=== PATIENT | female | born 1995 | race Caucasian/White ===

== ENCOUNTER 2019-09-05 12:44 | Emergency (ER) | payer BC, OTHER ==
[2019-09-05 14:21] LABS: BLOOD UREA NITROGEN,BUN 7 mg/dL (7.0-18.0); CARBON DIOXIDE,CO2 28.7 mmol/L (21.0-32.0); CHLORIDE,CL 105 mmol/L (98-107); GLUCOSE RANDOM 86 mg/dL (74-106); SODIUM,NA 143 mmol/L (136-145)
--- NOTE | 2019-09-05 14:35 | CR ---
INDICATION: Chest pain, shortness of breath, weak, dizzy, syncope for 6 mon TECHNIQUE: Chest radiograph 2 views COMPARISON: None FINDINGS: Mediastinum: The mediastinum is normal in appearance. The heart silhouette is normal in size and morphology. Lung: Both lungs are unremarkable in appearance. No sign of pleural effusion seen. No pneumothorax is identified. Bone and Soft tissue: Unremarkable for age. IMPRESSION: 1. No acute cardiopulmonary disease is seen. Dictated by: Dani Garcia MD @ 09/05/2019 14:35:02 (Electronically Signed)
--- NOTE | 2019-09-05 14:37 | CT ---
INDICATION: Pain. Headache. Dizzy. Blurred vision. TECHNIQUE: CT head without IV contrast. FINDINGS: No intracranial hemorrhage, edema, or mass effect. No significant intracranial pathology. Benign calcified nodule in the left frontal scalp anteriorly and superiorly. Remainder negative. Impression : No acute or significant intracranial pathology. Please note that all CT scans at this facility use dose modulation, iterative reconstruction, and/or weight-based dosing when appropriate to reduce radiation dose to as low as reasonably achievable. Dictated by Chris Lanza MD @ Sep 05 2019 2:35PM Signed by Dr. Chris Lanza @ Sep 05 2019 2:36PM
--- NOTE | 2019-09-05 14:39 | EDM.PDOC ---
ED HPI GENERAL MEDICAL PROBLEM - General Chief Complaint: Respiratory Problem Stated Complaint: DIZZINESS Time Seen by Provider: 09/05/19 13:31 Source of Information: Reports: Patient History Limitations: Reports: No Limitations - History of Present Illness INITIAL COMMENTS - FREE TEXT/NARRATIVE: HISTORY AND PHYSICAL: History of present illness: Patient is a 24-year-old female who presents to the ED today with concern of dizziness episodes. Patient states she has been having issues of dizziness episodes over the past month and has had episodes of feeling like she is going to lose consciousness. Patient states that she has had these episodes multiple times over the course of the past month but has not seen or been evaluated for them. Patient states that she took a pre-workout today this morning and went to the gym. Patient states that while walking at the gym her heart rate was in the 130s (she checked on her apple watch) and states this felt unusual for her. Patient states she began to feel dizzy and lightheaded so went home and at home felt like she was going to "pass out ". Patient states she did not pass out and this episode had subsided. Patient states currently she feels "off." Patient denies any health history for herself or any family history of heart concerns. Patient states she is currently on her menstrual cycle. Patient denies fever, chills, chest pain, shortness of breath, or cough. Denies headache, neck stiff ness, change in vision, syncope. Denies nausea, vomiting, abdominal pain, diarrhea, constipation, or dysuria. Has not noted any blood in urine or stool. Patient has been eating and drinking appropriately. Review of systems: As per history of present illness and below otherwise all systems reviewed and negative. Past medical history: As per history of present illness and as reviewed below otherwise noncontributory. Surgical history: As per history of present illness and as reviewed below otherwise noncontributory. Social history: See social history for further information Family history: As per history of present illness and as reviewed below otherwise noncontributory. Physical exam: General: Patient is alert, oriented, and in no acute distress. Patient sitting comfortably on exam table. HEENT: Atraumatic, normocephalic, pupils equal and reactive bilaterally, negative for conjunctival pallor or scleral icterus, mucous membranes moist, TMs normal bilaterally, throat clear, neck supple, nontender, trachea midline. No drooling or trismus noted. No meningeal signs. No hot potato voice noted. Lungs: Clear to auscultation, breath sounds equal bilaterally, chest nontender. Heart: S1S2, regular rate and rhythm without overt murmur Abdomen: Soft, nondistended, nontender. Negative for masses or hepatosplenomegaly. Negative for costovertebral tenderness. Pelvis: Stable nontender. Genitourinary: Deferred. Rectal: Deferred. Skin: Intact, warm, dry. No lesions or rashes noted. Extremities: Atraumatic, negative for cords or calf pain. Neurovascular unremarkable. Neuro: Awake, alert, oriented. Cranial nerves II through XII unremarkable. Cerebellum unremarkable. Motor and sensory unremarkable throughout. Exam nonfocal. Notes: HEART 0 score low risk. Discussed importance for follow-up with a primary care provider; patient placed on expedited follow up list. Voices understanding and is agreeable to plan of care. Denies any further questions or concerns at this time. Diagnostics: EKG, CBC, CMP, UA, urine hCG, chest x-ray, troponin, head CT, orthostatic vitals Therapeutics: None Prescription: None Impression: H/O dizziness H/O palpitations Plan: 1. Follow-up with a primary care provider as discussed. Return to the ED as needed and as discussed. 2. Stop taking pre-workout supplements and limit caffeine as discussed. Definitive disposition and diagnosis as appropriate pending reevaluation and review of above. - Related Data Allergies Allergy/AdvReac Type Severity Reaction Status Date / Time No Known Allergies Allergy Verified 09/05/19 12:51 Home Meds: Home Meds . [No Known Home Meds] 09/05/19 [History] Past Medical History - Past Health History Medical/Surgical History: Denies Medical/Surgical History - Infectious Disease History Infectious Disease History: Reports: None Social & Family History - Family History Family Medical History: Noncontributory - Tobacco Use Smoking Status *Q: Current Every Day Smoker Years of Tobacco use: 5 Packs/Tins Daily: 0.1 - Caffeine Use Caffeine Use: Reports: None - Recreational Drug Use Recreational Drug Use: No ED ROS GENERAL - Review of Systems Review Of Systems: Comprehensive ROS is negative, except as noted in HPI. ED EXAM, GENERAL - Physical Exam Exam: See Below (see dictation) Course - Vital Signs Last Recorded V/S: Last Vital Signs Temp 97 F 09/05/19 12:52 Pulse 92 09/05/19 12:52 Resp 16 09/05/19 12:52 BP 119/89 09/05/19 12:52 Pulse Ox 97 09/05/19 12:52 - Orders/Labs/Meds Orders: Active Orders 24 hr Category Date Time Status Communication Order [RC] STAT Care 09/05/19 15:11 Active EKG Documentation Completion [RC] STAT Care 09/05/19 13:33 Active Orthostatic Vital Signs [RC] ASDIRECTED Care 09/05/19 13:59 Active Labs: Laboratory Tests 09/05/19 09/05/19 09/05/19 Range/Units 13:43 13:43 13:49 WBC 9.74 (4.0-11.0) K/uL RBC 4.80 (4.30-5.90) M/uL Hgb 13.9 (12.0-16.0) g/dL Hct 40.3 (36.0-46.0) % MCV 84.0 (80.0-98.0) fL MCH 29.0 (27.0-32.0) pg MCHC 34.5 (31.0-37.0) g/dL RDW Std Deviation 38.8 (28.0-62.0) fl RDW Coeff of Heidi 13 (11.0-15.0) % Plt Count 269 (150-400) K/uL MPV 11.00 (7.40-12.00) fL Neut % (Auto) 69.7 (48.0-80.0) % Lymph % (Auto) 20.7 (16.0-40.0) % Saline % (Auto) 8.7 (0.0-15.0) % Eos % (Auto) 0.6 (0.0-7.0) % Baso % (Auto) 0.3 (0.0-1.5) % Neut # (Auto) 6.8 H (1.4-5.7) K/uL Lymph # (Auto) 2.0 (0.6-2.4) K/uL Saline # (Auto) 0.9 H (0.0-0.8) K/uL Eos # (Auto) 0.1 (0.0-0.7) K/uL Baso # (Auto) 0.0 (0.0-0.1) K/uL Nucleated RBC % 0.0 /100WBC Nucleated RBCs # 0 K/uL Sodium (136-145) mmol/L Potassium (3.5-5.1) mmol/L Chloride (98-107) mmol/L Carbon Dioxide (21.0-32.0) mmol/L BUN (7.0-18.0) mg/dL Creatinine (0.6-1.0) mg/dL Est Cr Clr Drug Dosing mL/min Estimated GFR (MDRD) ml/min Glucose (74-106) mg/dL Calcium (8.5-10.1) mg/dL Total Bilirubin (0.2-1.0) mg/dL AST (15-37) IU/L ALT (14-63) IU/L Alkaline Phosphatase (46-116) U/L Troponin I (0.000-0.056) ng/mL Total Protein (6.4-8.2) g/dL Albumin (3.4-5.0) g/dL Globulin (2.6-4.0) g/dL Albumin/Globulin Ratio (0.9-1.6) Urine Color YELLOW Urine Appearance CLEAR Urine pH 8.0 (5.0-8.0) Ur Specific [place] 1.020 (1.001-1.035) Urine Protein NEGATIVE (NEGATIVE) mg/dL Urine Glucose (UA) NEGATIVE (NEGATIVE) mg/dL Urine Ketones NEGATIVE (NEGATIVE) mg/dL Urine Occult Blood NEGATIVE (NEGATIVE) Urine Nitrite NEGATIVE (NEGATIVE) Urine Bilirubin NEGATIVE (NEGATIVE) Urine Urobilinogen 0.2 (<2.0) EU/dL Ur Leukocyte Esterase NEGATIVE (NEGATIVE) Urine HCG, Qual NEGATIVE (NEGATIVE) 09/05/19 Range/Units 13:49 WBC (4.0-11.0) K/uL RBC (4.30-5.90) M/uL Hgb (12.0-16.0) g/dL Hct (36.0-46.0) % MCV (80.0-98.0) fL MCH (27.0-32.0) pg MCHC (31.0-37.0) g/dL RDW Std Deviation (28.0-62.0) fl RDW Coeff of Heidi (11.0-15.0) % Plt Count (150-400) K/uL MPV (7.40-12.00) fL Neut % (Auto) (48.0-80.0) % Lymph % (Auto) (16.0-40.0) % Saline % (Auto) (0.0-15.0) % Eos % (Auto) (0.0-7.0) % Baso % (Auto) (0.0-1.5) % Neut # (Auto) (1.4-5.7) K/uL Lymph # (Auto) (0.6-2.4) K/uL Saline # (Auto) (0.0-0.8) K/uL Eos # (Auto) (0.0-0.7) K/uL Baso # (Auto) (0.0-0.1) K/uL Nucleated RBC % /100WBC Nucleated RBCs # K/uL Sodium 143 (136-145) mmol/L Potassium 4.0 (3.5-5.1) mmol/L Chloride 105 (98-107) mmol/L Carbon Dioxide 28.7 (21.0-32.0) mmol/L BUN 7 (7.0-18.0) mg/dL Creatinine 0.7 (0.6-1.0) mg/dL Est Cr Clr Drug Dosing 121.55 mL/min Estimated GFR (MDRD) > 60.0 ml/min Glucose 86 (74-106) mg/dL Calcium 9.1 (8.5-10.1) mg/dL Total Bilirubin 0.6 (0.2-1.0) mg/dL AST 15 (15-37) IU/L ALT 23 (14-63) IU/L Alkaline Phosphatase 59 (46-116) U/L Troponin I < 0.050 (0.000-0.056) ng/mL Total Protein 7.5 (6.4-8.2) g/dL Albumin 4.1 (3.4-5.0) g/dL Globulin 3.4 (2.6-4.0) g/dL Albumin/Globulin Ratio 1.2 (0.9-1.6) Urine Color Urine Appearance Urine pH (5.0-8.0) Ur Specific [place] (1.001-1.035) Urine Protein (NEGATIVE) mg/dL Urine Glucose (UA) (NEGATIVE) mg/dL Urine Ketones (NEGATIVE) mg/dL Urine Occult Blood (NEGATIVE) Urine Nitrite (NEGATIVE) Urine Bilirubin (NEGATIVE) Urine Urobilinogen (<2.0) EU/dL Ur Leukocyte Esterase (NEGATIVE) Urine HCG, Qual (NEGATIVE) Departure - Departure Time of Disposition: 15:08 Disposition: Home, Self-Care 01 Clinical Impression: History of dizziness, History of palpitations - Discharge Information Referrals: PCP,None [Primary Care Provider] - Forms: ED Department Discharge Additional Instructions: The following information is given to patients seen in the emergency department who are being discharged to home. This information is to outline your options for follow-up care. We provide all patients seen in our emergency department with a follow-up referral. The need for follow-up, as well as the timing and circumstances, are variable depending upon the specifics of your emergency department visit. If you don't have a primary care physician on staff, we will provide you with a referral. We always advise you to contact your personal physician following an emergency department visit to inform them of the circumstance of the visit and for follow-up with them and/or the need for any referrals to a consulting specialist. The emergency department will also refer you to a specialist when appropriate. This referral assures that you have the opportunity for follow-up care with a specialist. All of these measure are taken in an effort to provide you with optimal care, which includes your follow-up. Under all circumstances we always encourage you to contact your private physician who remains a resource for coordinating your care. When calling for follow-up care, please make the office aware that this follow-up is from your recent emergency room visit. If for any reason you are refused follow-up, please contact the [facility] Emergency Department at and asked to speak to the emergency department charge nurse. [facility] [address] [place] [id number] [facility] [address] [place] [id number] 1. Follow-up with a primary care provider as discussed. Return to the ED as needed and as discussed. 2. Stop taking pre-workout supplements and limit caffeine as discussed. Sepsis Event Note - Evaluation Sepsis Screening Result: No Definite Risk - Focused Exam Vital Signs: Vital Signs Temp Pulse Resp BP Pulse Ox 09/05/19 12:52 97 F 92 16 119/89 97 Date Exam was Performed: 09/05/19 Time Exam was Performed: 15:23 - My Orders Last 24 Hours: My Active Orders 09/05/19 13:33 EKG Documentation Completion [RC] STAT 09/05/19 13:59 Orthostatic Vital Signs [RC] ASDIRECTED 09/05/19 15:11 Communication Order [RC] STAT - Assessment/Plan Last 24 Hours: My Active Orders 09/05/19 13:33 EKG Documentation Completion [RC] STAT 09/05/19 13:59 Orthostatic Vital Signs [RC] ASDIRECTED 09/05/19 15:11 Communication Order [RC] STAT
== END 2019-09-05 15:38 | disposition home or self-care (01) ==
LOC: MW.ED 12:44
DX: R42 Dizziness and giddiness (principal); R00.2 Palpitations; F17.210 Nicotine dependence, cigarettes, uncomplicated
CPT/HCPCS: 36415; 70450; 70450-26; 71046; 71046-26; 80053; 81003; 81025; 84484; 85025; 87804; 93005; 99283; 99284-25

== ENCOUNTER 2019-10-11 19:48 | Emergency (ER) | payer SELFPAY ==
--- NOTE | 2019-10-11 20:49 | EDM.PDOC ---
ED HPI GENERAL MEDICAL PROBLEM - General Chief Complaint: Respiratory Problem Stated Complaint: COUGH Time Seen by Provider: 10/11/19 20:08 Source of Information: Reports: Patient History Limitations: Reports: No Limitations - History of Present Illness INITIAL COMMENTS - FREE TEXT/NARRATIVE: HISTORY AND PHYSICAL: History of present illness: Patient is a 24-year-old female who presents to the ED today with concern of desire for coronavirus testing. Patient states the only reason she is here is because her work is requesting that she be tested for the coronavirus. Patient states she has had low-grade fever off and on for the past 2 days and started having a cough. Patient denies feeling short of breath and states that she has not had a fever for most of today. Patient states she is only here because work is requesting it and had sent her home. Patient denies any other symptoms or concerns. Patient denies fever, chills, chest pain, shortness of breath, or cough. Denies headache, neck stiff ness, change in vision, syncope, or near syncope. Denies nausea, vomiting, abdominal pain, diarrhea, constipation, or dysuria. Has not noted any blood in urine or stool. Patient has been eating and drinking appropriately. Review of systems: As per history of present illness and below otherwise all systems reviewed and negative. Past medical history: As per history of present illness and as reviewed below otherwise noncontributory. Surgical history: As per history of present illness and as reviewed below otherwise noncontributory. Social history: See social history for further information Family history: As per history of present illness and as reviewed below otherwise noncontributory. Physical exam: General: Patient is alert, oriented, and in no acute distress. Patient sitting comfortably on exam table. HEENT: Atraumatic, normocephalic, pupils equal and reactive bilaterally, negative for conjunctival pallor or scleral icterus, mucous membranes moist, TMs normal bilaterally, throat clear, neck supple, nontender, trachea midline. No drooling or trismus noted. No meningeal signs. No hot potato voice noted. Lungs: Patient speaking clearly without breathlessness, no wheezing or stridor, no accessory muscle use or respiratory distress. Auscultation deferred due to current COV-ID 19 outbreak. Heart: Auscultation deferred due to current COV-ID 19 out break Abdomen: Soft, nondistended, nontender. Negative for masses or hepatosplenomegaly. Negative for costovertebral tenderness. Pelvis: Stable nontender. Genitourinary: Deferred. Rectal: Deferred. Skin: Intact, warm, dry. No lesions or rashes noted. Extremities: Atraumatic, negative for cords or calf pain. Neurovascular unremarkable. Neuro: Awake, alert, oriented. Cranial nerves II through XII unremarkable. Cerebellum unremarkable. Motor and sensory unremarkable throughout. Exam nonfocal. Notes: Due to the [facility] restrictions, patient does not meet the testing requirements for the COV-ID 19. However, did discuss with patient the [facility] recommendations for staying at home and when if needed to return to the ED. Discussed importance of follow-up with a primary care provider. Voices understanding and is agreeable to plan of care. Denies any further questions or concerns at this time. Diagnostics: None Therapeutics: None Prescription: None Impression: Viral syndrome Plan: 1. Stay in isolation for at least 3 days, 72 hours have passed, since recovery or resolution of fever without the use of fever reducing medication such as Tylenol and ibuprofen. 2. You can alternate ibuprofen and Tylenol as directed for pain and discomfort. 3. Follow-up with a primary care provider as discussed. Return to the ED as needed and as discussed. Definitive disposition and diagnosis as appropriate pending reevaluation and review of above. - Related Data Allergies Allergy/AdvReac Type Severity Reaction Status Date / Time No Known Allergies Allergy Verified 10/11/19 20:13 Home Meds: Home Meds . [No Known Home Meds] 09/05/19 [History] Past Medical History - Past Health History Medical/Surgical History: Denies Medical/Surgical History - Infectious Disease History Infectious Disease History: Reports: None - Past Surgical History HEENT Surgical History: Reports: Adenoidectomy, Myringotomy w Tube(s) Social & Family History - Family History Family Medical History: Noncontributory - Tobacco Use Smoking Status *Q: Current Every Day Smoker Years of Tobacco use: 8 Packs/Tins Daily: 0.5 - Caffeine Use Caffeine Use: Reports: Energy Drinks - Recreational Drug Use Recreational Drug Use: No ED ROS GENERAL - Review of Systems Review Of Systems: Comprehensive ROS is negative, except as noted in HPI. ED EXAM, GENERAL - Physical Exam Exam: See Below (see dictation) Course - Vital Signs Last Recorded V/S: Last Vital Signs Temp 97.7 F 10/11/19 20:11 Pulse 75 10/11/19 20:11 Resp 17 10/11/19 20:11 BP 116/74 10/11/19 20:11 Pulse Ox 99 10/11/19 20:11 Departure - Departure Time of Disposition: 20:48 Disposition: Home, Self-Care 01 Clinical Impression: Viral syndrome - Discharge Information Referrals: PCP,None [Primary Care Provider] - Forms: ED Department Discharge Additional Instructions: The following information is given to patients seen in the emergency department who are being discharged to home. This information is to outline your options for follow-up care. We provide all patients seen in our emergency department with a follow-up referral. The need for follow-up, as well as the timing and circumstances, are variable depending upon the specifics of your emergency department visit. If you don't have a primary care physician on staff, we will provide you with a referral. We always advise you to contact your personal physician following an emergency department visit to inform them of the circumstance of the visit and for follow-up with them and/or the need for any referrals to a consulting specialist. The emergency department will also refer you to a specialist when appropriate. This referral assures that you have the opportunity for follow-up care with a specialist. All of these measure are taken in an effort to provide you with optimal care, which includes your follow-up. Under all circumstances we always encourage you to contact your private physician who remains a resource for coordinating your care. When calling for follow-up care, please make the office aware that this follow-up is from your recent emergency room visit. If for any reason you are refused follow-up, please contact the [facility] Emergency Department at and asked to speak to the emergency department charge nurse. [facility] [address] [place] [address] [id number] [id number] 1. Stay in isolation for at least 3 days, 72 hours have passed, since recovery or resolution of fever without the use of fever reducing medication such as Tylenol and ibuprofen. 2. You can alternate ibuprofen and Tylenol as directed for pain and discomfort. 3. Follow-up with a primary care provider as discussed. Return to the ED as needed and as discussed. Sepsis Event Note - Evaluation Sepsis Screening Result: No Definite Risk - Focused Exam Vital Signs: Vital Signs Temp Pulse Resp BP Pulse Ox 10/11/19 20:11 97.7 F 75 17 116/74 99 Date Exam was Performed: 10/11/19 Time Exam was Performed: 20:54
== END 2019-10-11 21:05 | disposition home or self-care (01) ==
LOC: MW.ED 19:48
DX: B34.9 Viral infection, unspecified (principal); F17.210 Nicotine dependence, cigarettes, uncomplicated
CPT/HCPCS: 99283

== ENCOUNTER 2020-04-19 13:46 | Emergency (ER) | payer BC ==
[2020-04-19] MEDS ORDERED: Dexamethasone 10 MG/ML SDV IVPUSH STA (14:26)
[2020-04-19] MEDS ORDERED: Ibuprofen Susp 100 MG/5 ML 10 ML UD Cup PO STA (14:27)
--- NOTE | 2020-04-19 14:46 | EDM.PDOC ---
ED HPI GENERAL MEDICAL PROBLEM - General Chief Complaint: ENT Problem Stated Complaint: THROAT PAIN Time Seen by Provider: 04/19/20 13:51 Source of Information: Reports: Patient History Limitations: Reports: No Limitations - History of Present Illness INITIAL COMMENTS - FREE TEXT/NARRATIVE: History of present illness: Is a 25-year-old woman without any significant past medical history who presents to the emergency department for a chief complaint of sore throat. The patient states that her sore throat began approximately 24 to 48 hours prior upon awakening. She states that she is having pain with swallowing but denies any drooling, trismus, or change in voice. She states that she has felt chills but denies any fevers. She rates her pain as 8 out of 10. She denies any radiation of the pain. She states that she has tried NyQuil and Tylenol without any relief. She denies any sick contacts. Her last dose of NyQuil was at 7 AM. She states that she has had a non productive cough with some post tussive emesis. She denies any shortness of breath, wheezing, melena, hematochezia, or hematemesis. She denies any known contacts with anybody with coronavirus. She denies any other symptoms in family members. throat Pain Score (Numeric/FACES): 10 - Related Data Allergies Allergy/AdvReac Type Severity Reaction Status Date / Time No Known Allergies Allergy Verified 04/19/20 14:06 Home Meds: Home Meds Ibuprofen [Children's Ibuprofen] 400 mg PO Q6HR #400 oral.susp 04/19/20 [Rx] Past Medical History - Past Health History Medical/Surgical History: Denies Medical/Surgical History - Infectious Disease History Infectious Disease History: Reports: None - Past Surgical History HEENT Surgical History: Reports: Adenoidectomy, Myringotomy w Tube(s) Social & Family History - Family History Family Medical History: Noncontributory - Tobacco Use Smoking Status *Q: Never Smoker - Caffeine Use Caffeine Use: Reports: Energy Drinks - Alcohol Use Alcohol Use History: Yes Days Per Week of Alcohol Use: 1 (drinks 1-4 beers on weekends) Alcohol Use Frequency: Weekly - Recreational Drug Use Recreational Drug Use: No Drug Use in Last 12 Months: No - Sexual History Sexual History: Reports: None. Denies: Oral Sex ED ROS ENT - Review of Systems Review Of Systems: See Below Constitutional: Reports: Chills, Malaise. Denies: Fever HEENT: Reports: Throat Pain, Throat Swelling, Other. Denies: Dental Pain, Ear Discharge, Ear Pain, Nose Pain, Rhinitis, Vertigo, Vision Change Respiratory: Reports: Cough. Denies: Shortness of Breath Cardiovascular: Denies: Chest Pain, Dyspnea on Exertion Endocrine: Denies: Fatigue, High Glucose GI/Abdominal: Reports: Difficulty Swallowing, Vomiting. Denies: Abdominal Pain, Hematemesis, Nausea : Denies: Discharge, Dysuria Musculoskeletal: Denies: Muscle Pain, Muscle Stiffness Skin: Denies: Pruritis, Rash Neurological: Denies: Dizziness, Headache Psychiatric: Reports: No Symptoms Hematologic/Lymphatic: Reports: No Symptoms Immunologic: Reports: No Symptoms Free Text/Narrative/Comment: Denies any trouble speaking, drooling, or trismus. ED EXAM, ENT - Physical Exam Exam: See Below Exam Limited By: No Limitations General Appearance: Alert, WD/WN, No Apparent Distress, Other (Sitting comfortably in chair) Eye Exam: Left Eye: Normal Inspection Ears: Normal External Exam, Normal Canal, Hearing Grossly Normal, Normal TMs Nose: Normal Inspection, Normal Mucousa. No: Clear Rhinorrhea, Nasal Discharge Mouth/Throat: Pharyngeal Erythema, Throat Pain, Throat Swelling, Tonsillar Erythema, Tonsillar Swelling. No: Drooling, Dry Mucous Membrane, Hoarse Voice, Lip Swelling, Muffled Voice, Oral Ulcers, Tonsillar Exudates, Trismus, Uvular Deviation, Uvular Edema Head: Atraumatic, Normocephalic Neck: Supple, Non-Tender, Full Range of Motion. No: Lymphadenopathy (L), Lymphadenopathy (R) Respiratory/Chest: No Respiratory Distress, Lungs Clear, Normal Breath Sounds Cardiovascular: Normal Peripheral Pulses, Regular Rate, Rhythm, No Edema, No JVD GI/Abdominal: Normal Bowel Sounds, Soft, Non-Tender (Female) Exam: Deferred Rectal (Female) Exam: Deferred Back: No: CVA Tenderness (L), CVA Tenderness (R) Extremities: Normal Inspection, Normal Range of Motion Neurological: Alert, Normal Cognition Psychiatric: Normal Affect, Normal Mood Skin: Warm, Dry, Intact, No Rash Lymphatic: No Adenopathy Course - Vital Signs Last Recorded V/S: Last Vital Signs Temp 36.7 C 04/19/20 14:00 Pulse 89 04/19/20 15:19 Resp 16 04/19/20 15:19 BP 97/55 L 04/19/20 15:19 Pulse Ox 97 04/19/20 15:19 - Orders/Labs/Meds Labs: Laboratory Tests 04/19/20 Range/Units 14:36 Monoscreen NEGATIVE (NEG) Meds: Medications Discontinued Medications Generic Name Dose Route Start Last Admin Trade Name John PRN Reason Stop Dose Admin Dexamethasone 10 mg 04/19/20 14:26 04/19/20 14:34 Dexamethasone IVPUSH 04/19/20 14:27 10 mg ONETIME STA Administration Ibuprofen 400 mg 04/19/20 14:27 04/19/20 14:33 Motrin 100 Mg/5 Ml Susp PO 04/19/20 14:28 400 mg ONETIME STA Administration - Re-Assessments/Exams Free Text/Narrative Re-Assessment/Exam: 04/19/20 15:39 Medical Decision Making: This is a 25 year old woman without any significant PMH who presents with 2 days duration of sore throat associated with throat pain, swelling, and difficulty swallowing secondary to pain who has no evidence of airway compromise. At this time I do believe the patient is experiencing viral pharyngitis as the patient is experiencing cough, chills, and sore throat. I will send a mono spot test and provide the patient with PO Dexamethasone and Ibuprophen and encourage PO fluid intake and reevaluate the patient. On reevaluation the patient was able to tolerate her medications and juice without any significant difficulty. I did have a discussion with the patient that given her Monospot was negative that at this time she be stable for discharge. I discussed with her that she likely has viral pharyngitis and does not require antibiotic administration at this time. I discussed with her that if providing her with an ibuprofen prescription to be picked up at her local pharmacy and to be used every 6 hours for inflammation. She is to continue with p.o. hydration at home and was told to change to a soup diet for the next 2 days. She was given strict return precautions and was told to follow-up with her primary care physician within 1 to 2 weeks. She was amenable discharge at this time and no further questions. Departure - Departure Time of Disposition: 15:24 Disposition: Home, Self-Care 01 Condition: Fair Clinical Impression: Pharyngitis Qualifiers: Pharyngitis/tonsillitis etiology: other specified organisms Qualified Code(s): J02.8 - Acute pharyngitis due to other specified organisms - Discharge Information *PRESCRIPTION DRUG MONITORING PROGRAM REVIEWED*: No *COPY OF PRESCRIPTION DRUG MONITORING REPORT IN PATIENT PARAMJIT: No Prescriptions: Ibuprofen [Children's Ibuprofen] 400 mg PO Q6HR #400 oral.susp Instructions: Pharyngitis, [id number] Referrals: PCP,Not In Area [Primary Care Provider] - Forms: ED Department Discharge Additional Instructions: The following information is given to patients seen in the emergency department who are being discharged to home. This information is to outline your options for follow-up care. We provide all patients seen in our emergency department with a follow-up referral. The need for follow-up, as well as the timing and circumstances, are variable depending upon the specifics of your emergency department visit. If you don't have a primary care physician on staff, we will provide you with a referral. We always advise you to contact your personal physician following an emergency department visit to inform them of the circumstance of the visit and for follow-up with them and/or the need for any referrals to a consulting specialist. The emergency department will also refer you to a specialist when appropriate. This referral assures that you have the opportunity for follow-up care with a specialist. All of these measure are taken in an effort to provide you with optimal care, which includes your follow-up. Under all circumstances we always encourage you to contact your private physician who remains a resource for coordinating your care. When calling for follow-up care, please make the office aware that this follow-up is from your recent emergency room visit. If for any reason you are refused follow-up, please contact the [facility] Emergency Department at and asked to speak to the emergency department charge nurse. [facility] [address] [place] [id number] [facility] [address] [place] [address] Sepsis Event Note (ED) - Evaluation Sepsis Screening Result: No Definite Risk - Focused Exam Vital Signs: Vital Signs Temp Pulse Resp BP Pulse Ox 04/19/20 15:19 89 16 97/55 L 97 04/19/20 14:00 36.7 C 103 H 16 109/67 97
== END 2020-04-19 15:34 | disposition home or self-care (01) ==
LOC: MW.ED 13:46
DX: J02.8 Acute pharyngitis due to other specified organisms (principal)
CPT/HCPCS: 36415; 86308; 96374; 99283-25; A9270-GY; J1100

== ENCOUNTER 2021-01-28 09:20 | Emergency (ER) | payer BC ==
[2021-01-28] MEDS ORDERED: Ondansetron 4 MG Tab.DIS PO ONE (09:49)
[2021-01-28] MEDS ORDERED: Ketorolac 15 MG/ML SDV IM ONE (09:49)
--- NOTE | 2021-01-28 09:55 | EDM.PDOC ---
ED HPI GENERAL MEDICAL PROBLEM - General Chief Complaint: Respiratory Problem Stated Complaint: POSS PX Time Seen by Provider: 01/28/21 09:23 Source of Information: Reports: Patient History Limitations: Reports: No Limitations - History of Present Illness INITIAL COMMENTS - FREE TEXT/NARRATIVE: Patient is a 25-year-old female presents today for productive cough and body aches. States that she went to the doctor with her boyfriend who both have symptoms she was told she possible pneumonia was given a pill which she believes may be antibiotics she can remember that she is close to 10 days. States that she still has a cough and her body aches and her throat now hurts as well. Patient also reports that she coughs a month that time she vomits. She denies any chest pain abdominal pain. She denies any reported fevers at home but does report some chills. Body Aches Pain Score (Numeric/FACES): 7 - Related Data Allergies Allergy/AdvReac Type Severity Reaction Status Date / Time No Known Allergies Allergy Verified 01/28/21 09:41 Home Meds: Home Meds Benzonatate [Tessalon Perle] 100 mg PO ASDIRECTED PRN 01/28/21 [History] Cefdinir 300 mg PO BID 01/28/21 [History] Past Medical History - Past Health History Medical/Surgical History: Denies Medical/Surgical History - Infectious Disease History Infectious Disease History: Reports: None - Past Surgical History HEENT Surgical History: Reports: Adenoidectomy, Myringotomy w Tube(s) Social & Family History - Family History Family Medical History: No Pertinent Family History - Caffeine Use Caffeine Use: Reports: Energy Drinks - Sexual History Sexual History: Reports: None. Denies: Oral Sex ED ROS GENERAL - Review of Systems Review Of Systems: See Below Constitutional: Reports: No Symptoms HEENT: Reports: No Symptoms Respiratory: Reports: Cough Cardiovascular: Reports: No Symptoms Endocrine: Reports: No Symptoms GI/Abdominal: Reports: No Symptoms : Reports: No Symptoms Musculoskeletal: Reports: No Symptoms Skin: Reports: No Symptoms Neurological: Reports: No Symptoms Psychiatric: Reports: No Symptoms Hematologic/Lymphatic: Reports: No Symptoms Immunologic: Reports: No Symptoms ED EXAM, GENERAL - Physical Exam Exam: See Below Exam Limited By: No Limitations General Appearance: Alert, WD/WN Eye Exam: Bilateral Eye: EOMI, PERRL Respiratory/Chest: No Respiratory Distress, Lungs Clear, Normal Breath Sounds Cardiovascular: Normal Peripheral Pulses, Regular Rate, Rhythm GI/Abdominal: Normal Bowel Sounds, Soft, Non-Tender Extremities: Normal Inspection Neurological: Alert, Oriented, Normal Cognition, Normal Gait Course - Vital Signs Last Recorded V/S: Last Vital Signs Temp 96.6 F L 01/28/21 09:42 Pulse 92 01/28/21 09:42 Resp 20 01/28/21 09:42 BP 109/74 01/28/21 09:42 Pulse Ox 96 01/28/21 09:42 - Orders/Labs/Meds Labs: Laboratory Tests 01/28/21 01/28/21 01/28/21 Range/Units 09:50 10:25 10:31 WBC 8.48 (4.0-11.0) K/uL RBC 4.44 (4.30-5.90) M/uL Hgb 13.4 (12.0-16.0) g/dL Hct 39.3 (36.0-46.0) % MCV 88.5 (80.0-98.0) fL MCH 30.2 (27.0-32.0) pg MCHC 34.1 (31.0-37.0) g/dL RDW Std Deviation 39.4 (28.0-62.0) fl RDW Coeff of Heidi 12 (11.0-15.0) % Plt Count 231 (150-400) K/uL MPV 11.00 (7.40-12.00) fL Neut % (Auto) 61.0 (48.0-80.0) % Lymph % (Auto) 24.2 (16.0-40.0) % Bullitt % (Auto) 12.5 (0.0-15.0) % Eos % (Auto) 1.7 (0.0-7.0) % Baso % (Auto) 0.6 (0.0-1.5) % Neut # (Auto) 5.2 (1.4-5.7) K/uL Lymph # (Auto) 2.1 (0.6-2.4) K/uL Bullitt # (Auto) 1.1 H (0.0-0.8) K/uL Eos # (Auto) 0.1 (0.0-0.7) K/uL Baso # (Auto) 0.1 (0.0-0.1) K/uL Sodium (136-145) mmol/L Potassium (3.5-5.1) mmol/L Chloride (98-107) mmol/L Carbon Dioxide (21.0-32.0) mmol/L BUN (7.0-18.0) mg/dL Creatinine (0.6-1.0) mg/dL Est Cr Clr Drug Dosing mL/min Estimated GFR (MDRD) ml/min Glucose (74-106) mg/dL Calcium (8.5-10.1) mg/dL Urine HCG, Qual NEGATIVE (NEGATIVE) Group A Strep (PCR) NOT DETECTED (NOT DETECT) 01/28/21 Range/Units 10:31 WBC (4.0-11.0) K/uL RBC (4.30-5.90) M/uL Hgb (12.0-16.0) g/dL Hct (36.0-46.0) % MCV (80.0-98.0) fL MCH (27.0-32.0) pg MCHC (31.0-37.0) g/dL RDW Std Deviation (28.0-62.0) fl RDW Coeff of Heidi (11.0-15.0) % Plt Count (150-400) K/uL MPV (7.40-12.00) fL Neut % (Auto) (48.0-80.0) % Lymph % (Auto) (16.0-40.0) % Bullitt % (Auto) (0.0-15.0) % Eos % (Auto) (0.0-7.0) % Baso % (Auto) (0.0-1.5) % Neut # (Auto) (1.4-5.7) K/uL Lymph # (Auto) (0.6-2.4) K/uL Bullitt # (Auto) (0.0-0.8) K/uL Eos # (Auto) (0.0-0.7) K/uL Baso # (Auto) (0.0-0.1) K/uL Sodium 140 (136-145) mmol/L Potassium 4.2 (3.5-5.1) mmol/L Chloride 101 (98-107) mmol/L Carbon Dioxide 32.2 H (21.0-32.0) mmol/L BUN 8 (7.0-18.0) mg/dL Creatinine 0.6 (0.6-1.0) mg/dL Est Cr Clr Drug Dosing 145.85 mL/min Estimated GFR (MDRD) > 60.0 ml/min Glucose 86 (74-106) mg/dL Calcium 8.8 (8.5-10.1) mg/dL Urine HCG, Qual (NEGATIVE) Group A Strep (PCR) (NOT DETECT) Meds: Medications Discontinued Medications Generic Name Dose Route Start Last Admin Trade Name Freq PRN Reason Stop Dose Admin Ketorolac Tromethamine 15 mg 01/28/21 09:49 01/28/21 10:16 Ketorolac 15 Mg/Ml Sdv IM 01/28/21 09:50 15 mg ONETIME ONE Administration Ondansetron HCl 4 mg 01/28/21 09:49 01/28/21 10:16 Ondansetron 4 Mg Tab.Dis PO 01/28/21 09:50 4 mg ONETIME ONE Administration - Re-Assessments/Exams Free Text/Narrative Re-Assessment/Exam: 01/28/21 12:04 Patient x-ray clear as well as rapid strep no white count will be discharge. Departure - Departure Time of Disposition: 12:05 Disposition: Home, Self-Care 01 Condition: Good Clinical Impression: Viral illness - Discharge Information *PRESCRIPTION DRUG MONITORING PROGRAM REVIEWED*: Not Applicable *COPY OF PRESCRIPTION DRUG MONITORING REPORT IN PATIENT PARAMJIT: Not Applicable Instructions: Viral Illness, Adult Referrals: PCP,None [Primary Care Provider] - Forms: ED Department Discharge Additional Instructions: The following information is given to patients seen in the emergency department who are being discharged to home. This information is to outline your options for follow-up care. We provide all patients seen in our emergency department with a follow-up referral. The need for follow-up, as well as the timing and circumstances, are variable depending upon the specifics of your emergency department visit. If you don't have a primary care physician on staff, we will provide you with a referral. We always advise you to contact your personal physician following an emergency department visit to inform them of the circumstance of the visit and for follow-up with them and/or the need for any referrals to a consulting specialist. The emergency department will also refer you to a specialist when appropriate. This referral assures that you have the opportunity for follow-up care with a specialist. All of these measure are taken in an effort to provide you with optimal care, which includes your follow-up. Under all circumstances we always encourage you to contact your private physician who remains a resource for coordinating your care. When calling for follow-up care, please make the office aware that this follow-up is from your recent emergency room visit. If for any reason you are refused follow-up, please contact the [facility] Emergency Department at and asked to speak to the emergency department charge nurse. Please follow up with your primary care physician. If you do not have a primary care physician, see below: [facility] [address] [place] [id number] [facility] [address] [place] [address] You are seen today for body aches nausea and increased cough. You were given antibiotics me. Advised that we recommend you continue to take. We did a rapid strep that was negative for strep throat. We gave you nausea medication you have been drinking here. Recommend you go home stay hydrated with fluids and take Tylenol Motrin as needed for body aches. You have any other concerning signs or symptoms please feel free to return to the ED otherwise follow-up with your primary care physician. Sepsis Event Note (ED) - Evaluation Sepsis Screening Result: No Definite Risk - Focused Exam Vital Signs: Vital Signs Temp Pulse Resp BP Pulse Ox 01/28/21 09:42 96.6 F L 92 20 109/74 96 - Assessment/Plan Plan: Patient is a 25-year-old female presents today for increased cough and body aches. Will obtain x-ray rapid strep and reassess patient.
[2021-01-28 10:52] LABS: BLOOD UREA NITROGEN,BUN 8 mg/dL (7.0-18.0); CARBON DIOXIDE,CO2 32.2 mmol/L (21.0-32.0); CHLORIDE,CL 101 mmol/L (98-107); GLUCOSE RANDOM 86 mg/dL (74-106); POTASSIUM,K 4.2 mmol/L (3.5-5.1); SODIUM,NA 140 mmol/L (136-145)
--- NOTE | 2021-01-28 11:26 | CR ---
INDICATION: Chronic productive cough. TECHNIQUE: Chest 1 view. COMPARISON: 05 September 2019 FINDINGS: Cardiovascular and mediastinum: Heart size and vasculature are normal in caliber and appearance. Mediastinum is within normal limits. Lungs and pleural space: Lungs are clear. No sign of infiltrate or mass. No sign of pleural effusion. No pneumothorax. Bones and soft tissues: No significant findings. IMPRESSION: Unremarkable chest. Dictated by Brando Bartlett MD @ 01/28/2021 11:26:[address] Brando Bartlett @ Jan 28 2021 11:26AM
== END 2021-01-28 12:16 | disposition home or self-care (01) ==
LOC: MW.ED 09:20
DX: B34.9 Viral infection, unspecified (principal)
CPT/HCPCS: 36415; 71045; 80048; 81025; 85025; 87651; 96372; 99283; A9270; J1885

== ENCOUNTER 2021-08-27 18:42 | Emergency (ER) | payer BC ==
[2021-08-27 19:39] LABS: CORONAVIRUS COVID-19 NAA NEGATIVE (NEGATIVE); INFLUENZA A NAA POSITIVE (NEGATIVE); INFLUENZA B NAA NEGATIVE (NEGATIVE)
[2021-08-27] MEDS ORDERED: Ondansetron 4 MG Tab.DIS PO ONE (19:57)
== END 2021-08-27 20:07 | disposition home or self-care (01) ==
LOC: MW.ED 18:42
DX: J10.1 Influenza due to other identified influenza virus with other respiratory manifestations (principal); Z20.822 Contact with and (suspected) exposure to COVID-19
CPT/HCPCS: 0240U; 71045; 81025; 99283; A9270

== ENCOUNTER 2021-10-04 09:02 | Emergency (ER) | payer BC ==
[2021-10-04] MEDS ORDERED: Ondansetron 4 MG/2 ML SDV IVPUSH ONE (09:13)
[2021-10-04] MEDS ORDERED: Dextrose 5%-Lactated Ringers 1,000 ML IV STA (09:13)
[2021-10-04 09:51] LABS: BLOOD UREA NITROGEN,BUN 13 mg/dL (7.0-18.0); CARBON DIOXIDE,CO2 27.6 mmol/L (21.0-32.0); CHLORIDE,CL 97 mmol/L (98-107); ESTIMATED GFR > 60.0 ml/min; GLUCOSE RANDOM 90 mg/dL (74-106); LIPASE 38 U/L (73-393); POTASSIUM,K 4.1 mmol/L (3.5-5.1); SODIUM,NA 137 mmol/L (136-145)
[2021-10-04 10:07] LABS: CORONAVIRUS COVID-19 NAA NEGATIVE (NEGATIVE); INFLUENZA A NAA NEGATIVE (NEGATIVE); INFLUENZA B NAA NEGATIVE (NEGATIVE)
[2021-10-04] MEDS ORDERED: Ibuprofen 600 MG Tab PO ONE (10:22)
[2021-10-04] MEDS ORDERED: Promethazine 25 MG Tab PO STA (11:41)
== END 2021-10-04 13:06 | disposition home or self-care (01) ==
LOC: MW.ED 09:02
DX: R11.10 Vomiting, unspecified (principal); R19.7 Diarrhea, unspecified; R10.9 Unspecified abdominal pain; Z91.018 Allergy to other foods; Z20.822 Contact with and (suspected) exposure to COVID-19
CPT/HCPCS: 0240U; 36415; 80053; 83690; 84703; 85025; 96374; 99284; A9270; J2405; J7121; 99283

== ENCOUNTER 2022-09-13 19:38 | Emergency (ER) | payer BC, MEDICAID ==
[2022-09-13] MEDS ORDERED: Acetaminophen/HYDROcodone 325-10 MG Tab PO ONE (20:39)
[2022-09-13] MEDS ORDERED: Morphine 4 MG/ML Syringe IM ONE (20:45)
== END 2022-09-13 21:55 | disposition home or self-care (01) ==
LOC: MW.ED 19:38
DX: O9A.23 Injury, poisoning and certain other consequences of external causes complicating the puerperium (principal); S93.401A Sprain of unspecified ligament of right ankle, initial encounter; Z91.018 Allergy to other foods; Z3A.31 31 weeks gestation of pregnancy; X50.1XXA Overexertion from prolonged static or awkward postures, initial encounter
CPT/HCPCS: 73610; 96372; 99283; J2270

== ENCOUNTER 2022-11-08 05:07 | Inpatient (IN) | payer BC, MEDICAID ==
[2022-11-08] MEDS ORDERED: Sodium Chloride 0.9% 2.5 ML Syringe FLUSH PRN (05:18)
[2022-11-08] MEDS ORDERED: Misoprostol 200 MCG Tab PO PRN (05:18)
[2022-11-08] MEDS ORDERED: Carboprost Tromethamine 250 MCG/1 ML Amp IM PRN (05:18)
[2022-11-08] MEDS ORDERED: Sodium Chloride 0.9% 10 ML Syringe FLUSH PRN (05:18)
[2022-11-08] MEDS ORDERED: Terbutaline 1 MG/ML SDV SUBCUT PRN (05:18)
[2022-11-08] MEDS ORDERED: Water For Irrigation,Sterile 1,000 ML Container IRR PRN (05:18)
[2022-11-08] MEDS ORDERED: Sodium Chloride 0.9% 20 ML SDV IV PRN (05:18)
[2022-11-08] MEDS ORDERED: Lidocaine 1% 50 ML MDV INJECT PRN (05:18)
[2022-11-08] MEDS ORDERED: Methylergonovine 0.2 MG/1 ML Amp IM PRN (05:18)
[2022-11-08] MEDS ORDERED: Tranexamic Acid 1,000 MG in Sodium Chloride 0.9% 100 ML IV PRN (05:18)
[2022-11-08] MEDS ORDERED: Butorphanol 1 MG/ML SDV IVPUSH PRN (05:18)
[2022-11-08] MEDS ORDERED: Ondansetron 4 MG/2 ML SDV IVPUSH PRN (05:18)
[2022-11-08] MEDS ORDERED: Oxytocin/0.9 % Sodium Chloride 30 UNIT/500 ML BAG IV SCH ×2 (05:30)
[2022-11-08] MEDS ORDERED: Misoprostol 25 MCG (1/4 of 100 MCG) Tab VAG PRN ×2 (06:00→10:00)
[2022-11-08] MEDS: Lactated Ringers 1,000 ML IV SCH ×2 (13:43→15:34)
[2022-11-08] MEDS ORDERED: Dexmedetomidine 200 MCG/2 ML SDV ONE (15:11)
[2022-11-08] MEDS ORDERED: Ropivacaine/PF 400 MG/200 ML PCA ONE (15:12)
[2022-11-08] MEDS ORDERED: Phenylephrine HCl 0.5 MG/5 ML AMP IVPUSH PRN (16:08)
[2022-11-08] MEDS ORDERED: ePHEDrine 50 MG/ML SDV IVPUSH PRN ×2 (16:08)
[2022-11-08] MEDS ORDERED: Ropivacaine HCl/PF 400 MG in Premix Bag 1 BAG EPIDUR SCH (16:15)
[2022-11-08] MEDS ORDERED: oxyCODONE 5 MG Tab PO PRN (21:28)
[2022-11-08] MEDS ORDERED: Acetaminophen 500 MG Tab PO PRN (21:28)
[2022-11-08] MEDS ORDERED: Docusate Sodium 100 MG Cap PO PRN (21:28)
[2022-11-08] MEDS ORDERED: Lanolin 100% Cream 7 GM Tube TOP PRN (21:28)
[2022-11-08] MEDS ORDERED: Bisacodyl 10 MG Supp RECTAL PRN (21:28)
[2022-11-08] MEDS ORDERED: Ibuprofen 400 MG Tab PO PRN (21:28)
[2022-11-08] MEDS: Witch Hazel Medicated Pads 40/Jar TOP PRN (22:43)
[2022-11-08] MEDS: Benzocaine/Menthol 20%-0.5% Spray 78 GM Cannister TOP PRN (22:43)
[2022-11-08] MEDS: Ibuprofen 800 MG Tab PO PRN (23:50)
[2022-11-08] MEDS: Acetaminophen 500 MG Tab PO PRN (23:52)
[2022-11-09] MEDS: Acetaminophen 500 MG Tab PO PRN ×2 (08:01→16:15)
[2022-11-09] MEDS: Ibuprofen 800 MG Tab PO PRN (16:15)
[2022-11-10] MEDS: Acetaminophen 500 MG Tab PO PRN (04:58)
[2022-11-10] MEDS: Benzocaine/Menthol 20%-0.5% Spray 78 GM Cannister TOP PRN (11:55)
[2022-11-10] MEDS: Witch Hazel Medicated Pads 40/Jar TOP PRN (11:55)
== END 2022-11-10 14:14 | disposition home or self-care (01) | DRG 560 ==
LOC: MW.OBCHECK 05:07 → MW.OB 05:10 → MW.OBCHECK 05:18 → OBSVTOIN 20:51 → MW.OB 11-09 00:35
PROVIDERS: ADMIT Obstetrics & Gynecology; ATTEND Obstetrics & Gynecology
PROC: 10E0XZZ Delivery of Products of Conception, External Approach (ICD-10-PCS; principal; 2022-11-08)
PROC: 10907ZC Drainage of Amniotic Fluid, Therapeutic from Products of Conception, Via Natural or Artificial Opening (ICD-10-PCS; 2022-11-08)
PROC: 3E033VJ Introduction of Other Hormone into Peripheral Vein, Percutaneous Approach (ICD-10-PCS; 2022-11-08)
PROC: 0KQM0ZZ Repair Perineum Muscle, Open Approach (ICD-10-PCS; 2022-11-08)
PROC: 3E0P7VZ Introduction of Hormone into Female Reproductive, Via Natural or Artificial Opening (ICD-10-PCS; 2022-11-08)
PROC: 3E0R3BZ Introduction of Anesthetic Agent into Spinal Canal, Percutaneous Approach (ICD-10-PCS; 2022-11-08)
PROC: 00HU33Z Insertion of Infusion Device into Spinal Canal, Percutaneous Approach (ICD-10-PCS; 2022-11-08)
PROC: 0UQMXZZ Repair Vulva, External Approach (ICD-10-PCS; 2022-11-08)
DX: O70.1 Second degree perineal laceration during delivery (principal); O71.82 Other specified trauma to perineum and vulva; O69.81X0 Labor and delivery complicated by cord around neck, without compression, not applicable or unspecified; Z3A.39 39 weeks gestation of pregnancy; Z37.0 Single live birth; Z87.891 Personal history of nicotine dependence
CPT/HCPCS: 36415; 59025; 59409; 82803; 85014; 85018; 85027; 86592; 86850; 86900; 86901; A9270-GY; J0595; J2590; J2795; J3490; J7120